=== PATIENT | male | born 1975 | race African-American/Black ===

== ENCOUNTER 2019-12-26 04:51 | Observation (INO) | payer OTHER ==
[2019-12-26] MEDS ORDERED: Metoprolol Tartrate 5 MG/5 ML VIAL ONE (05:13)
[2019-12-26] MEDS ORDERED: Clopidogrel Bisulfate 75 MG TAB PO SCH ×2 (09:15→10:15)
[2019-12-26] MEDS ORDERED: Clopidogrel Bisulfate 75 MG TAB ONE (10:15)
[2019-12-26] MEDS ORDERED: Rosuvastatin 20 MG TAB PO SCH ×2 (10:15→21:00)
--- NOTE | 2019-12-26 10:35 | MRI ---
EXAM: MRI of the brain without contrast HISTORY: Right arm numbness COMPARISON: None TECHNIQUE: Multiplanar multisequence MR images were obtained of the brain without IV contrast. FINDINGS: The brain demonstrates normal signal intensity on all obtained sequences. No restricted diffusion. No hydronephrosis. No extra-axial fluid collection or intracranial hemorrhage. The expected flow voids are present. Corpus callosum, pituitary, and craniocervical junction are within normal limits. The calvarium and overlying soft tissues are unremarkable. The paranasal sinuses and mastoid air cells are well aerated. IMPRESSION: No evidence of acute intracranial abnormality.
[2019-12-26] MEDS ORDERED: metFORMIN 500 MG TAB PO SCH (17:00)
[2019-12-27] MEDS ORDERED: Lisinopril 10 MG TAB PO SCH (09:00)
[2019-12-27] MEDS ORDERED: Clopidogrel Bisulfate 75 MG TAB PO SCH (09:00)
--- NOTE | 2019-12-29 07:11 | SS ---
DATE OF ADMISSION: 12/26/2019 DATE OF DISCHARGE: 12/26/2019 PRIMARY CARE PHYSICIAN: Dr. Maddox. REASON FOR ADMISSION: Numbness and tingling, possible TIA. DIAGNOSES AT DISCHARGE: 1. Transient ischemic attack, resolved. 2. Previous stroke. 3. Hypertension. 4. Diabetes mellitus. 5. Hyperlipidemia. PROCEDURES: 1. CT of the brain without contrast showing no acute abnormality. 2. CT angio of the brain and neck showing no evidence of significant stenosis in any of the major vessels of the head or neck. 3. MRI of the brain showing no acute intracranial abnormality. CONSULTATIONS: None. CHIEF COMPLAINT: Right face and arm numbness and tingling. HISTORY OF PRESENT ILLNESS: This is a 44-year-old -[place] male with a history of previous stroke in August of this year when he was up in [place]. He was admitted to hospital there, reportedly had an MRI confirming a tiny mini-stroke. He had lost complete movement in his right arm and some right facial droop. He has gotten most of that back by now. He moved down here to stay with his dad. When the patient moved, he was able to bring his insulins with him most of his medicines, but somehow forgot to bring his Crestor, so he has not been taking that. The patient is also allergic to aspirin, so he is just on Plavix which he has been taking. The patient reports that he had right upper extremity numbness and tingling starting about 2-1/2 hours before he went to the emergency room. It was persistent, so he went into the [facility]. There, had a negative CT and a negative CTA of the head and neck, so he was transferred to our facility. On his way to here, all the symptoms resolved. The patient does have some very mild discoordination on the right and residual right upper extremity weakness ever since his previous stroke, but no symptoms left over from this episode. He also states he may have a little bit of a right facial droop from his previous stroke, but nothing new this episode. All of his new symptoms have resolved. The patient was eager to go home once he got here and his symptoms were all resolved. He was observed in the emergency room, and an MRI was done, which showed no acute abnormalities. We were not able to visualize the previous stroke. The patient does report that he had an echocardiogram done at his previous hospital that was normal. He had his heart looked at there, and he has had negative carotids here, and negative EKG and telemetry monitoring for any sort of arrhythmia. Then, it was determined that we will discharge him and have him follow up with his primary care doctor. I will go ahead and refill his Crestor for him, however. REVIEW OF SYSTEMS: CONSTITUTIONAL: No fevers or chills. EYES: No double vision or blurred vision. ENT: No congestion, drainage, or sore throat. CARDIOVASCULAR: No chest pain. No palpitations or racing heart. PULMONARY: No coughing, wheezing, or shortness of breath. GASTROINTESTINAL: No abdominal pain. No nausea or vomiting. The patient has chronic diarrhea, ever since diagnosed with diabetes 10 years ago. He has loose stools about 5 times a day. GENITOURINARY: No dysuria or hematuria. MUSCULOSKELETAL: No muscle aches or joint pain. SKIN: No rashes or lesions noted. NEUROLOGIC: See HPI. PAST MEDICAL HISTORY: 1. Acute ischemic stroke with some right-sided residual weakness. 2. Diabetes mellitus, type 2, on insulin. 3. Previous renal failure, resolved. PAST SURGICAL HISTORY: None. PAST PSYCHIATRIC HISTORY: Positive for depression. SOCIAL HISTORY: The patient uses marijuana. No tobacco. No alcohol. He lives with his father and with his and 5 kids. His youngest child is now in high school. He is a full code, and his would be his medical decision maker should he be incapacitated. FAMILY HISTORY: Not significant for any cardiac or neurologic history. ALLERGIES: ASPIRIN AND PENICILLINS. ASPIRIN CAUSES VOMITING. PENICILLIN CAUSES HIVES. CURRENT MEDICATIONS: 1. Basaglar long-acting insulin 18 units each night. 2. Sliding scale short-acting insulin 6 units before each meal. 3. Metformin 500 mg at night. 4. Lisinopril 10 mg daily. 5. Suppose to be on Crestor, unknown dose, daily. 6. Plavix 75 mg daily. PHYSICAL EXAMINATION: VITAL SIGNS: Blood pressure 127/93, pulse 90, respirations 16, temperature 97.9, O2 saturation 100% on room air. GENERAL: This is a well-developed, well nourished -[place] male, in no acute distress. HEENT: Pupils are equal, round, and reactive to light. Oropharynx clear without lesions, erythema, or exudate. NECK: Supple. No lymphadenopathy. No thyroid nodules or enlargement. HEART: Regular rate and rhythm. No murmurs, rubs, or gallops. LUNGS: Clear to auscultation bilaterally. No wheezes, crackles, or rhonchi. ABDOMEN: Soft, nontender to palpation. Normoactive bowel sounds. No hepatosplenomegaly or other masses. EXTREMITIES: No clubbing, cyanosis, or edema. SKIN: No rashes or other lesions noted. NEUROLOGIC: The patient has intact strength and sensation in bilateral upper and lower extremities. He may have a very mild right facial droop. I was not able to appreciate any weakness or incoordination in his right upper extremity. Deep tendon reflexes are 2+ in all extremities. PSYCHIATRIC: Alert and oriented x3. Normal mood and affect. LABORATORY DATA: CBC with a hemoglobin of 10.3, hematocrit 33.7, the rest was normal. Complete metabolic panel is notable for potassium of 3.3, chloride of 108, and glucose of 198. Lactic acid was negative. The rest of the CMP was normal. His troponin was negative x1. His serum tox screen for salicylates, acetaminophen, and alcohol were all negative. IMAGING DATA: Imaging as per HPI. EKG done in the emergency room shows normal sinus rhythm with some possible right ventricular hypertrophy. No significant acute abnormalities. ASSESSMENT: 1. Transient ischemic attack, resolved. 2. History of stroke. 3. Diabetes mellitus, insulin dependent. 4. Hypertension. 5. Hyperlipidemia. DISCHARGE MANAGEMENT: Discharged home. ACTIVITY: As tolerated. DIET: Diabetic diet. FOLLOWUP: The patient is to follow up with Dr. Maddox in the next 1 to 2 weeks. DISCHARGE MEDICATIONS: 1. Rosuvastatin 20 mg p.o. daily 30 tablets dispensed, prescription written. 2. Continue lisinopril 10 mg daily. 3. Metformin 500 mg twice a day. 4. Clopidogrel 75 mg daily. 5. Continue insulins as before daily. Job ID: [id number]
== END 2019-12-26 13:36 | disposition home or self-care (01) ==
LOC: ERS 04:51 → ERHOLD 05:25
PROVIDERS: ADMIT Internal Medicine; ATTEND Internal Medicine
DX: G45.9 Transient cerebral ischemic attack, unspecified (principal); I69.331 Monoplegia of upper limb following cerebral infarction affecting right dominant side; I10 Essential (primary) hypertension; E11.9 Type 2 diabetes mellitus without complications; E78.5 Hyperlipidemia, unspecified; Z79.02 Long term (current) use of antithrombotics/antiplatelets; Z79.4 Long term (current) use of insulin; Z79.899 Other long term (current) drug therapy; Z88.0 Allergy status to penicillin; Z88.6 Allergy status to analgesic agent
CPT/HCPCS: 70551; 96374

== ENCOUNTER 2022-06-15 20:28 | Inpatient (IN) | payer BC, SELFPAY ==
[2022-06-15 21:22] LABS: #Lymphocytes 1.7 thou/uL (1.20-3.40); #Monocytes 1.2 thou/uL (0.11-0.59); %Basophils 0.1 % (0.0-1.0); %Eosinophils 0.1 % (0.0-10.0); %Lymphocytes 10.2 % (21.0-51.0); %Monocytes 6.9 % (0.0-10.0); %Neutrophils 82.7 % (42.0-75.0); Hemoglobin 11.1 g/dL (14.0-18.0); Mean Corpuscular HGB CONC 32.3 g/dL (32.0-36.0); Mean Corpuscular Volume 83.5 fl (78.0-98.0); Mean Platelet Volume 10.9 fL (7.4-10.4); Platelet Count 199 10x3/uL (130-400)
[2022-06-15 21:40] LABS: Acetaminophen Less than 10.0 mcg/mL (10.0-30.0); Alcohol Less than 10 mg/dL (Less than 10); CK (CPK) 410 U/L (30-200); Salicylate Less than 8.0 mg/dL (15.0-30.0)
[2022-06-15 21:41] LABS: ALT (SGPT) 17 U/L (8-55); AST (SGOT) 27 U/L (5-34); Albumin 3.9 g/dL (3.5-5.0); Alkaline Phosphatase 85 U/L (40-110); BUN (Urea Nitrogen) 73 mg/dL (8.9-20.6); Bilirubin, Total 0.5 mg/dL (0.2-1.2); Calc. Creatinine Clearance 0 mL/min (70-130); Calcium 9.4 mg/dL (7.8-10.44); Chloride 90 mmol/L (98-107); Estimated GFR 19; Globulin 4.3 g/dL (2.4-3.5); Lipase 28 U/L (8-78); Potassium 5.1 mmol/L (3.5-5.1); Protein, Total 8.2 g/dL (6.0-8.3); Sodium 134 mmol/L (136-145)
[2022-06-15 21:46] LABS: Carbon Dioxide Less than 8 mmol/L (22-29); Glucose 754 mg/dL (70-105)
[2022-06-15 21:58] LABS: Analyzer IN Cardio ER; Base Excess -19.9 mEq/L (-2.0 to +3.0); Calcium, Ionized (venous) 1.23 mmol/L (1.16-1.32); Chloride (VBG) 90 mmol/L (98-106); Hemoglobin (Hb) 12.2 g/dL (13.1-17.2); Potassium (VBG) 5.11 mmol/L (3.70-5.30); Sodium 137.4 mmol/L (133-146)
[2022-06-15 22:01] LABS: Actual Bicarbonate (HCO3v) 8 mEq/L (22-28); pH (venous) 7.12 (7.32-7.43)
[2022-06-15 23:30] LABS: Bilirubin Negative (Negative); Blood, Urine 2+ (Negative); Clarity Clear (Clear); Glucose, Urine (Dipstick) Greater than 1000 mg/dL (Negative); Ketone, Urine Greater than 150 mg/dL (Negative); Leukocyte Negative Leu/uL (Negative); Nitrite Negative (Negative); Protein, Urine (Dipstick) 10 mg/dL (Neg-Trace); RBC/HPF 0-3 HPF (0-3); Squamous Epithelial None Seen HPF (0-3); Urobilinogen Normal mg/dL (Less than 2); WBC/HPF 0-3 HPF (0-3); Yeast-Budding Rare HPF (None Seen)
[2022-06-15 23:34] LABS: Amphetamine Not Detected (NotDetected); Barbiturates Screen Not Detected (NotDetected); Benzodiazepine Screen Not Detected (NotDetected); Cocaine Metabolite Screen Not Detected (NotDetected); Methadone Not Detected (NotDetected); Methamphetamine Not Detected (NotDetected); Opiate Screen Not Detected (NotDetected); Oxycodone Screen Not Detected (NotDetected); Phencyclidine (PCP) Not Detected (NotDetected); THC/Cannabinoid Screen Detected (NotDetected); Tricyclic Screen Not Detected (NotDetected)
[2022-06-15 23:40] LABS: Bacteria/HPF 1+ HPF (None Seen); Sperm/HPF Rare HPF (None Seen)
[2022-06-15] MEDS ORDERED: Potassium Chloride 20 MEQ TAB ONE (23:43)
[2022-06-15] MEDS ORDERED: Sodium Bicarb 50 MEQ/50 ML VIAL ONE (23:43)
[2022-06-15] MEDS ORDERED: Vancomycin 1 GM/200 ML (FROZEN) BAG ONE (23:43)
[2022-06-15] MEDS ORDERED: INSULIN REGULAR IN 0.9 % NACL 100 UNIT/100 ML BAG ONE (23:43)
[2022-06-15] MEDS ORDERED: cefTRIAXone\\ROCEPHIN 2 GM VIAL ONE (23:43)
[2022-06-15] MEDS ORDERED: HUMULIN R 100 UNITS in Sodium Chloride 0.9% 100 ML IVPB SCH (23:45)
[2022-06-15] MEDS ORDERED: Electrolyte Replacement Protocol 1 EACH IVPB PRN (23:49)
[2022-06-15] MEDS ORDERED: D5 1/2 NS w/20 mEq KCL 1,000 ML IV PRN (23:49)
[2022-06-15] MEDS ORDERED: Dextrose 5 %-0.45 % NaCl 1,000 ML IV PRN (23:49)
[2022-06-15] MEDS ORDERED: Sodium Chloride 0.9% 1,000 ML IV PRN ×4 (23:49)
[2022-06-15] MEDS ORDERED: NS 0.9% w/ 20 MEQ KCL 1,000 ML IV PRN ×2 (23:49)
[2022-06-15] MEDS ORDERED: Ondansetron ODT 4 MG TAB PO PRN (23:50)
[2022-06-15] MEDS ORDERED: Ondansetron PF 4 MG/2 ML Vial IVP PRN (23:50)
[2022-06-15 23:55] LABS: SARS-CoV-2 NAA Rapid Test Not Detected (NotDetected)
[2022-06-16 01:22] LABS: BUN (Urea Nitrogen) 72 mg/dL (8.9-20.6); Calc. Creatinine Clearance 0 mL/min (70-130); Calcium 8.7 mg/dL (7.8-10.44); Chloride 98 mmol/L (98-107); Estimated GFR 23; Magnesium 2.7 mg/dL (1.6-2.6); Phosphorus 5.7 mg/dL (2.3-4.7); Potassium 4.7 mmol/L (3.5-5.1); Sodium 138 mmol/L (136-145)
[2022-06-16 01:24] LABS: Carbon Dioxide Less than 8 mmol/L (22-29); Glucose 705 mg/dL (70-105)
[2022-06-16 02:01] LABS: Glucose 665 mg/dL (70-105)
[2022-06-16 04:26] LABS: Anion Gap 30 mmol/L (10-20); BUN (Urea Nitrogen) 67 mg/dL (8.9-20.6); Calc. Creatinine Clearance 26 mL/min (70-130); Calcium 8.3 mg/dL (7.8-10.44); Carbon Dioxide 10 mmol/L (22-29); Chloride 106 mmol/L (98-107); Estimated GFR 24; Potassium 4.5 mmol/L (3.5-5.1); Sodium 141 mmol/L (136-145)
[2022-06-16 04:36] LABS: Glucose 489 mg/dL (70-105)
[2022-06-16 08:07] LABS: #Lymphocytes 1.3 thou/uL (1.20-3.40); #Monocytes 0.9 thou/uL (0.11-0.59); #Neutrophils 10.3 thou/uL (1.40-6.50); %Basophils 0.2 % (0.0-1.0); %Eosinophils 0.1 % (0.0-10.0); %Lymphocytes 10.7 % (21.0-51.0); %Monocytes 7.2 % (0.0-10.0); %Neutrophils 81.9 % (42.0-75.0); Hemoglobin 10.1 g/dL (14.0-18.0); Mean Corpuscular HGB CONC 33.1 g/dL (32.0-36.0); Mean Corpuscular Hemoglobin 27.2 pg (27.0-31.0); Mean Corpuscular Volume 82.3 fl (78.0-98.0); Mean Platelet Volume 9.8 fL (7.4-10.4); Platelet Count 155 10x3/uL (130-400); RBC Distribution Width 11.8 % (11.5-14.5); Red Blood Cell (RBC) Count 3.72 mill/uL (4.70-6.10); White Blood Cell (WBC) Count 12.6 10x3/uL (4.8-10.8)
[2022-06-16] MEDS ORDERED: Famotidine/PF 20 mg/2ml Vial SLOW IVP SCH (09:00)
[2022-06-16 09:22] LABS: Anion Gap 18 mmol/L (10-20); BUN (Urea Nitrogen) 60 mg/dL (8.9-20.6); Calc. Creatinine Clearance 31 mL/min (70-130); Calcium 8.6 mg/dL (7.8-10.44); Carbon Dioxide 18 mmol/L (22-29); Chloride 114 mmol/L (98-107); Estimated GFR 30; Glucose 270 mg/dL (70-105); Potassium 4.7 mmol/L (3.5-5.1); Sodium 145 mmol/L (136-145)
[2022-06-16] MEDS: Heparin 5,000 UNITS/ML VIAL SC SCH ×3 (09:32→21:00)
[2022-06-16] MEDS: Famotidine 20 MG TAB PO SCH (09:58)
[2022-06-16] MEDS ORDERED: Dextrose 5% in Water 1,000 ML IV PRN (14:20)
[2022-06-16] MEDS ORDERED: Dextrose 50% Abboject 50 ML SYRINGE SLOW IVP PRN (14:20)
[2022-06-16] MEDS: Sodium Chloride 0.9% 1,000 ML IV SCH (15:11)
[2022-06-16] MEDS ORDERED: Insulin Glargine 30 UNITS/0.3 ML VIAL SC SCH (21:00)
[2022-06-17] MEDS: Sodium Chloride 0.9% 1,000 ML IV SCH ×3 (00:02→21:55)
[2022-06-17] MEDS: HumaLOG 300 UNITS/3 ML VIAL SC PRN ×3 (00:44→12:44)
[2022-06-17 04:52] LABS: Anion Gap 18 mmol/L (10-20); BUN (Urea Nitrogen) 37 mg/dL (8.9-20.6); Calc. Creatinine Clearance 38 mL/min (70-130); Calcium 8.3 mg/dL (7.8-10.44); Carbon Dioxide 15 mmol/L (22-29); Chloride 111 mmol/L (98-107); Estimated GFR 38; Glucose 296 mg/dL (70-105); Potassium 4.1 mmol/L (3.5-5.1); Sodium 140 mmol/L (136-145)
[2022-06-17] MEDS: Famotidine 20 MG TAB PO SCH (09:24)
[2022-06-17] MEDS: Clopidogrel Bisulfate 75 MG TAB PO SCH (09:24)
[2022-06-17] MEDS: Heparin 5,000 UNITS/ML VIAL SC SCH ×3 (09:24→21:56)
[2022-06-17] MEDS: Insulin Glargine 30 UNITS/0.3 ML VIAL SC SCH ×2 (09:25→22:02)
[2022-06-17] MEDS ORDERED: Rosuvastatin 20 MG TAB PO SCH (21:00)
[2022-06-18] MEDS: Sodium Chloride 0.9% 1,000 ML IV SCH (04:33)
[2022-06-18] MEDS: HumaLOG 300 UNITS/3 ML VIAL SC PRN ×2 (05:42→11:50)
[2022-06-18 06:42] LABS: Anion Gap 10 mmol/L (10-20); BUN (Urea Nitrogen) 19 mg/dL (8.9-20.6); Calc. Creatinine Clearance 58 mL/min (70-130); Calcium 8.6 mg/dL (7.8-10.44); Carbon Dioxide 24 mmol/L (22-29); Chloride 106 mmol/L (98-107); Estimated GFR 63; Glucose 202 mg/dL (70-105); Potassium 3.4 mmol/L (3.5-5.1); Sodium 137 mmol/L (136-145)
[2022-06-18] MEDS: Clopidogrel Bisulfate 75 MG TAB PO SCH (09:19)
[2022-06-18] MEDS: Famotidine 20 MG TAB PO SCH (09:19)
[2022-06-18] MEDS: Insulin Glargine 30 UNITS/0.3 ML VIAL SC SCH (09:20)
[2022-06-18] MEDS: Heparin 5,000 UNITS/ML VIAL SC SCH ×2 (09:26→17:14)
[2022-06-18 16:33] VITALS: BP 140/88; TEMP 99.1
[2022-06-19] MEDS ORDERED: FLU VACC QS2022-23(6MOS UP)/PF 60 MCG/0.5 ML SYRINGE IM ONE (09:00)
== END 2022-06-18 19:25 | disposition home or self-care (01) | DRG 871 ==
LOC: ERS 20:28 → IMCU/EMU 06-16 00:54 → MSONC 06-17 19:01
PROVIDERS: ADMIT Student in an Organized Health Care Education/Training Program; ATTEND Internal Medicine
DX: A41.9 Sepsis, unspecified organism (principal); E11.10 Type 2 diabetes mellitus with ketoacidosis without coma; N17.9 Acute kidney failure, unspecified; N18.4 Chronic kidney disease, stage 4 (severe); R65.20 Severe sepsis without septic shock; E78.5 Hyperlipidemia, unspecified; D63.1 Anemia in chronic kidney disease; F41.9 Anxiety disorder, unspecified; F32.A Depression, unspecified; I12.9 Hypertensive chronic kidney disease with stage 1 through stage 4 chronic kidney disease, or unspecified chronic kidney disease; E11.22 Type 2 diabetes mellitus with diabetic chronic kidney disease; F17.210 Nicotine dependence, cigarettes, uncomplicated; E86.0 Dehydration; Z20.822 Contact with and (suspected) exposure to COVID-19; Z88.6 Allergy status to analgesic agent; Z88.0 Allergy status to penicillin; Z79.02 Long term (current) use of antithrombotics/antiplatelets; Z79.84 Long term (current) use of oral hypoglycemic drugs; Z79.899 Other long term (current) drug therapy; Z86.73 Personal history of transient ischemic attack (TIA), and cerebral infarction without residual deficits
CPT/HCPCS: 36415; 36416; 71045; 80048; 80053; 80306; 80307; 81003; 81015; 82010; 82140; 82550; 82805; 83690; 83735; 84100; 84484; 85025; 87040; 93005; 96365; 96374; 96375; 97139; J0696; J1644; J1815; J1956; J2405; J3370-JW; J3480; J7050; S0028; U0002